=== PATIENT | female | born 1940 ===

== ENCOUNTER 2017-07-10 11:51 | Emergency (ER) | payer MEDICARE, MEDICAID ==
--- NOTE | 2017-07-10 13:19 | ED PDOC ---
HPI: Psych/Substance Abuse Time Seen by Provider: 07/10/17 12:33 Chief Complaint (Nursing): Anxiety Chief Complaint (Provider): Anxiety attack History Per: Patient Additional Complaint(s): Pt. 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 Past Medical History Vital Signs: Last Vital Signs Temp 97.3 F L 07/10/17 11:54 Pulse 108 H 07/10/17 11:59 Resp 18 07/10/17 11:59 BP 156/90 H 07/10/17 11:59 Pulse Ox 100 07/10/17 11:59 - Allergies Allergies/Adverse Reactions: Allergies Allergy/AdvReac Type Severity Reaction Status Date / Time No Known Allergies Allergy Verified 07/10/17 11:54 - ECG O2 Sat by Pulse Oximetry: 100 Disposition - Disposition
[2017-07-10 14:19] LABS: BASO % 0.3 % (0.0-2.0); EOS # 0.1 K/uL (0.0-0.7); EOS % 0.9 % (0.0-4.0); HEMOGLOBIN 13.3 g/dL (12.0-16.0); LYMPH # 1.9 K/uL (1.0-4.3); LYMPH % 28.6 % (20.0-40.0); MEAN CELL VOLUME 87.4 fl (81.0-99.0); MEAN CORPUSCULAR HEMOGLOBIN 28.5 pg (27.0-31.0); MEAN CORPUSCULAR HGB CONC 32.7 g/dL (33.0-37.0); MEAN PLATELET VOLUME 9.5 fl (7.2-11.7); MONO # 0.4 K/uL (0.0-0.8); MONO % 6.3 % (0.0-10.0); NEUT # 4.2 K/uL (1.8-7.0); NEUT % 63.9 % (50.0-75.0); NRBC % 0.1 % (0.0-0.0); RBC 4.65 Mil/uL (3.80-5.20); RED CELL DISTRIBUTION WIDTH 13.4 % (11.5-14.5); WHITE BLOOD COUNT 6.5 K/uL (4.8-10.8)
[2017-07-10 14:27] LABS: ALB/GLOB RATIO 1.2 (1.0-2.1); ALBUMIN 4.1 g/dL (3.5-5.0); ALT/SGPT 25 U/L (9-52); AST/SGOT 20 U/L (14-36); BLOOD UREA NITROGEN 11 mg/dl (7-17); CALCIUM 9.8 mg/dL (8.4-10.2); GFR AFRICAN-AMERICAN > 60; GFR NON-AFRICAN AMERICAN > 60
--- NOTE | 2017-07-10 14:56 | RAD ---
PROCEDURE: CHEST RADIOGRAPH, 1 VIEW HISTORY: Palpitations COMPARISON: None available. FINDINGS: LUNGS: The lungs are well inflated and clear. PLEURA: No pneumothorax or pleural fluid seen. CARDIOVASCULAR: Normal. OSSEOUS STRUCTURES: No significant abnormalities. VISUALIZED UPPER ABDOMEN: Normal. OTHER FINDINGS: None. IMPRESSION: No active pulmonary disease.
[2017-07-10 16:36] VITALS: RESP 14
[2017-07-10 19:37] VITALS: BP 126/75; PULSE 74; TEMP 98; O2SAT 100
--- NOTE | 2017-07-11 11:17 | CARD ---
APPROVED REPORT EKG Measurement Heart [id number] [place] [id number] [id number] <Conclusion> Normal sinus rhythm short p-R interval and probable delta waves c/w [id number] Abnormal ECG artefact present
== END 2017-07-10 19:36 | disposition home or self-care (01) ==
LOC: H.ER 11:51 → MERGE 11:51 → H.ER 19:36
DX: F41.9 Anxiety disorder, unspecified (principal)